=== PATIENT | male | born 1995 | race Asian ===

== ENCOUNTER 2017-03-20 13:27 | Emergency (ER) | payer OTHER ==
[~2017-03-20] VITALS: Wt 81.3 kg
[2017-03-20] MEDS ORDERED: IBUPROFEN 800 MG TAB PO ONE (14:00)
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
[2017-03-20] MEDS ORDERED: NAPR-260 PO (15:08)
[2017-03-20] MEDS ORDERED: ACET500C5 PO (15:09)
== END 2017-03-20 15:27 | disposition home or self-care (01) ==
LOC: FTE 13:27
DX: M25.512 Pain in left shoulder (principal); M25.522 Pain in left elbow; M25.532 Pain in left wrist
CPT/HCPCS: 73030